=== PATIENT | male | born 1965 | race Caucasian/White ===

== ENCOUNTER 2020-07-25 09:47 | Outpatient (CLI) | payer OTHER ==
--- NOTE | 2020-07-25 10:29 | XRAY Report ---
PROCEDURE: Hips 2V BILAT INDICATIONS: HIP PAIN TECHNIQUE: An AP view of the pelvis and frog-leg lateral view of the right hip were acquired. COMPARISON: None FINDINGS: Bones: No fractures or dislocations. No suspicious bony lesions. The visualized pelvic ring appear s intact. Mild bilateral hip degenerative change. Soft tissues: No suspicious soft tissue calcifications or masses. IMPRESSION: Mild bilateral hip degenerative change. No evidence acute bony abnormality of the pelvis and left hip . Reviewed by: Blaze Coles MD on 07/25/2020 10:28 AM PST Approved by: Blaze Coles MD on 07/25/2020 10:28 AM PST Station ID: [id number]
--- NOTE | 2020-07-25 10:32 | XRAY Report ---
PROCEDURE: Lumbar Spine 2 View INDICATIONS: LUMBAR PAIN TECHNIQUE: 2 views of the lumbar spine were acquired. COMPARISON: None. FINDINGS: Bones: 5 [id number] vertebrae are present. There are bilateral L5 pars defects. There is grade 2 or 3 anterolisthesis of L5 on S1 measuring 2.7 cm. There is trace degenerative retrolisthesis of L4 on L5. There is mild degenerative anterolisthesis of L3 on L4. There is quite prominent facet arthro nila at these levels. No acute vertebral body compression fractures. Chronic T11 compression fractur e. No suspicious bony lesions. Soft tissues: Overlying bowel gas pattern is normal. No suspicious soft tissue calcifications. IMPRESSION: 1. Bilateral L5 pars defects with grade 2 or 3 anterolisthesis of L5 on S1. 2. Exuberant facet arthropathy and L3-L4 and L4-L5. 3. Chronic T11 compression fracture. Reviewed by: Blaze Coles MD on 07/25/2020 10:31 AM PST Approved by: Blaze Coles MD on 07/25/2020 10:31 AM PST Station ID: [id number]
== END 2020-07-25 09:48 | disposition home or self-care (01) ==
LOC: DI 09:47
DX: M16.0 Bilateral primary osteoarthritis of hip (principal); M43.17 Spondylolisthesis, lumbosacral region; M47.816 Spondylosis without myelopathy or radiculopathy, lumbar region; M47.817 Spondylosis without myelopathy or radiculopathy, lumbosacral region
CPT/HCPCS: 72100; 73521

== ENCOUNTER 2020-09-07 10:30 | Outpatient (CLI) | payer MEDICARE, OTHER ==
[2020-09-07 14:53] LABS: BASOPHILS # (AUTO) 0.1 10^3/uL (0.0-0.1); BASOPHILS % (AUTO) 0.7 %; EOSINOPHILS # (AUTO) 0.3 10^3/uL (0.0-0.7); EOSINOPHILS % (AUTO) 4.4 %; HGB - HEMOGLOBIN 13.8 g/dL (14.0-18.0); LYMPHOCYTES # (AUTO) 1.8 10^3/uL (1.5-3.5); LYMPHOCYTES % (AUTO) 24.4 %; MEAN CORPUSCULAR HEMOGLOBIN 28.9 pg (27.0-31.0); MEAN CORPUSCULAR HGB CONC 32.4 g/dL (32.0-36.0); MEAN CORPUSCULAR VOLUME 89.3 fL (80.0-94.0); MEAN PLATELET VOLUME 10.2 fL (7.4-11.4); MONOCYTES # (AUTO) 0.7 10^3/uL (0.0-1.0); MONOCYTES % (AUTO) 9.2 %; NEUTROPHILS # (AUTO) 4.6 10^3/uL (1.5-6.6); NEUTROPHILS % (AUTO) 60.9 %; PLT - PLATELET COUNT 238 10^3/uL (130-450); RED BLOOD COUNT 4.77 10^6/uL (4.70-6.10); RED CELL DISTRIBUTION WIDTH 13.3 % (12.0-15.0); WHITE BLOOD COUNT 7.5 x10^3/uL (4.8-10.8)
[2020-09-07 15:52] LABS: ALBUMIN 4.5 g/dL (3.2-5.5); ALBUMIN/GLOBULIN RATIO 1.5 (1.0-2.2); ALKALINE PHOSPHATASE 55 IU/L (42-121); ALT ALANINE AMINOTRANSFERASE 16 IU/L (10-60); AST ASPARTATE AMINOTRANSFERASE 18 IU/L (10-42); BUN - BLOOD UREA NITROGEN 18 mg/dL (6-20); CALCIUM 9.5 mg/dL (8.5-10.3); CARBON DIOXIDE - CO2 26 mmol/L (21-32); CHLORIDE 102 mmol/L (101-111); CHOL/HDL RATIO 5.5 (<5.0); CHOLESTEROL 264 mg/dL; CREATININE 1.2 mg/dL (0.6-1.2); GLUCOSE 120 mg/dL (70-100); HDL CHOLESTEROL 48 mg/dL; LDL CHOLESTEROL,CALCULATED 186 mg/dL; LDL/HDL RATIO 3.9 (<3.6); SODIUM 137 mmol/L (135-145); TOTAL PROTEIN 7.6 g/dL (6.7-8.2); VLDL CHOLESTEROL 30 mg/dL
== END 2020-09-07 10:31 | disposition home or self-care (01) ==
LOC: LAB.S 10:30
PROVIDERS: ATTEND Internal Medicine
DX: I10 Essential (primary) hypertension (principal); Z12.5 Encounter for screening for malignant neoplasm of prostate; I71.02 Dissection of abdominal aorta
CPT/HCPCS: 36415; 80053; 80061; 85025; G0103; 83721; 84153

== ENCOUNTER 2021-07-03 16:12 | Outpatient (CLI) | payer MEDICARE, OTHER ==
[2021-07-03 19:55] LABS: BASOPHILS # (AUTO) 0.1 10^3/uL (0.0-0.1); BASOPHILS % (AUTO) 0.6 %; EOSINOPHILS # (AUTO) 0.2 10^3/uL (0.0-0.7); HCT - HEMATOCRIT 42.2 % (42.0-52.0); HGB - HEMOGLOBIN 13.8 g/dL (14.0-18.0); LYMPHOCYTES # (AUTO) 1.9 10^3/uL (1.5-3.5); LYMPHOCYTES % (AUTO) 24.1 %; MEAN CORPUSCULAR HEMOGLOBIN 29.7 pg (27.0-31.0); MEAN CORPUSCULAR HGB CONC 32.7 g/dL (32.0-36.0); MEAN CORPUSCULAR VOLUME 90.9 fL (80.0-94.0); MEAN PLATELET VOLUME 10.4 fL (7.4-11.4); MONOCYTES # (AUTO) 0.6 10^3/uL (0.0-1.0); MONOCYTES % (AUTO) 7.9 %; NEUTROPHILS # (AUTO) 5.1 10^3/uL (1.5-6.6); NEUTROPHILS % (AUTO) 64.3 %; PLT - PLATELET COUNT 197 10^3/uL (130-450); RED BLOOD COUNT 4.64 10^6/uL (4.70-6.10); RED CELL DISTRIBUTION WIDTH 13.2 % (12.0-15.0)
[2021-07-03 20:14] LABS: ALBUMIN 4.4 g/dL (3.2-5.5); ALBUMIN/GLOBULIN RATIO 1.6 (1.0-2.2); BILIRUBIN,TOTAL 0.9 mg/dL (0.2-1.0); CALCIUM 9.4 mg/dL (8.5-10.3); CREATININE 1.3 mg/dL (0.6-1.2); POTASSIUM 4.1 mmol/L (3.5-5.0); TOTAL PROTEIN 7.2 g/dL (6.7-8.2)
[2021-07-03 20:26] LABS: THYROID STIMULATING HORMONE 3.9 uIU/mL (0.34-5.60)
== END 2021-07-03 16:13 | disposition home or self-care (01) ==
LOC: LAB.S 16:12
PROVIDERS: ATTEND Internal Medicine
DX: I10 Essential (primary) hypertension (principal); E03.9 Hypothyroidism, unspecified
CPT/HCPCS: 36415; 80053; 84443; 85025

== ENCOUNTER 2024-01-29 16:08 | Outpatient (CLI) | payer MEDICARE ==
--- NOTE | 2024-01-29 16:43 | XRAY Report ---
PROCEDURE: Hip w/Pelvis 2-3V RT INDICATIONS: PAIN IN RIGHT HIP JOINT TECHNIQUE: 3 views of the hip were acquired. COMPARISON: None. FINDINGS: Bones: No fractures or dislocations. No suspicious bony lesions. Mild acetabular joint space narr owing. Lower lumbar spine posterior lateral fusion and L5-S1 decompression Soft tissues: No suspicious soft tissue calcifications or masses. IMPRESSION: Mild degenerative joint space narrowing. No remodeling. Reviewed by: David Edwards MD on 01/29/2024 3:41 PM [email or web address] Approved by: David Edwards MD on 01/29/2024 3:41 PM AKDT Station ID: [id number]
== END 2024-01-29 16:09 | disposition home or self-care (01) ==
LOC: DI 16:08
PROVIDERS: ATTEND Internal Medicine
DX: M25.851 Other specified joint disorders, right hip (principal)

== ENCOUNTER 2024-02-01 13:00 | Outpatient (CLI) | payer MEDICARE ==
[2024-02-01 13:37] LABS: CREATININE 1.1 mg/dL (0.6-1.3)
[2024-02-01] MEDS ORDERED: iohexoL-300 100 ML VIAL ONE (14:23)
[2024-02-01] MEDS: iohexoL-300 100 ML VIAL IVP ONE (16:25)
--- NOTE | 2024-02-04 13:37 | CT Report ---
PROCEDURE: Angio Chest INDICATIONS: DISSECTION OF DISTAL AORTA CONTRAST: Omni 300 100ml TECHNIQUE: After the administration of intravenous contrast, 2 mm axial images were acquired from the pulmonary apices to the posterior costophrenic angles during the arterial phase. In addition, 1 mm lung kernel and 5 mm soft tissue kernel reconstructions were performed. 3-dimensional coronal oblique maximum int ensity projection (MIP) reformats, 8 mm axial MIP, and 5 mm coronal and sagittal MPR reformats were t hen performed through the thorax. For radiation dose reduction, the following was used: automated exp osure control, adjustment of mA and/or kV according to patient size. COMPARISON: None. Attempts to obtain priors from [facility] have been unsuccessful ove r the past 3 days. FINDINGS: Image quality: Excellent. Aorta and its attachments: The descending aorta is of normal caliber without dissection. It measures 3.3 cm. A dissection occurs involving the transverse arch between the origin of the left common carot id artery and the left subclavian. The brachiocephalic artery and left common carotid artery are unre markable. The left subclavian is involved and dissection from its origin to distal to the takeoff of the left vertebral artery. It appears the left vertebral artery is likely off of the false lumen. The dissection of the aorta continues below the lowest level imaged. The transverse arch of the aorta is aneurysmally dilated, measuring approximately 5.3 cm in diameter. The descending thoracic aorta is m ildly aneurysmally dilated, measuring 3.6 cm. The SMA and celiac are off of the true lumen, as are th e bilateral main renal arteries. The most proximal portion of the SARY appears to arise off the true l umen. There is no imaging alone this point. Lungs and pleura: No consolidation. No pleural effusions. No pneumothorax. No suspicious pulmonary n odules which require follow up. Mediastinum: Heart size is normal. No pericardial effusion. Moderate hiatal hernia. No mediastinal ad enopathy by size criteria. Chest wall and lower neck: Thyroid is unremarkable. No axillary or supraclavicular adenopathy by size . Bones: No aggressive osseous abnormality. Mild old T11 compression. Upper Abdomen: Unremarkable. IMPRESSION: 1. 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 Dissection involves the left subclavian to beyond the left vertebral artery. 2. 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 3. 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 There is mild aneurysmal dilatation of the descending thoracic aorta. 4. Dissection extends to beyond the level of imaging, which extends to just below the origin of the I MA. 5. SMA, celiac, and main renal arteries arise off of the true lumen. SARY likely arises off of the naif e lumen. Comment: Recommend obtaining the most recent previous study to evaluate whether or not aneurysmal dil atation of the transverse arch is increasing. Once prior studies become available, comparisons can be made and an addendum can be made to this dictation. Reviewed by: Blaze Coles MD on 02/04/2024 1:36 PM PDT Approved by: Blaze Coles MD on 02/04/2024 1:36 PM PDT Station ID: [id number]
== END 2024-02-01 13:01 | disposition home or self-care (01) ==
LOC: LAB 13:00
PROVIDERS: ATTEND Internal Medicine
DX: I71.012 Dissection of descending thoracic aorta (principal); Z79.899 Other long term (current) drug therapy
CPT/HCPCS: 36415; 71275; 82565; Q9967

== ENCOUNTER 2024-04-05 13:22 | Outpatient (CLI) | payer MEDICARE ==
--- NOTE | 2024-04-05 14:46 | Sleep Patient Instructions ---
Sleep Center Visit Summary - Patient Visit Information Reason for Visit: Initial consultation - Patient Instructions Additional Instructions: You will continue with CPAP therapy with pressure changed to 7-12 cmH2O. A supply prescription will be sent to new DME supplier once we have copy of sleep study. I will add an order to update your PAP machine. Please call the office to schedule a compliance follow up once you get your new device. Please follow up with the sleep care office one month after obtaining new device. - Clinic Information Contact: [facility] [address] [place] [address] [email or web address] T: [phone]
--- NOTE | 2024-04-05 14:50 | SLEEP CARE CONSULTATION ---
Information from patient questionnaire entered by Susan Malcolm. I have reviewed and concur with the information entered by Susan Malcolm. This document represents the service I personally performed and the decisions made by me, Kaelyn Akers ARNP. History of Present Illness Service Date and Time: 04/05/2024 1322 Reason for Visit: New patient, Previously diagnosed sleep apnea, sleep apnea on CPAP therapy Chief Complaint: reports: Snoring, Observed pauses in breathing, Other (UPDATE SUPPLIES) Date of Onset: 10+YRRS Usual bedtime: 2300 Time it takes to fall asleep: 5MINS Snores at night: Yes Observed to quit breathing while asleep: Yes Sleeps alone due to snoring: No Number of times waking at night: 3-5 Reasons for waking at night: reports: Bathroom Toss, Turn, or Twitch while sleeping: Yes Recalls having dreams: Yes Usually gets out of bed at: 0800 Feels refreshed in the morning: Yes Morning headache: No Sleepy or fatigued during the day: Yes Ever fallen asleep while driving: No Takes day naps: Yes Dreams during day naps: No Prior sleep studies: Yes Additional HPI information: TEMI AYERS was previously diagnosed to have severe, AHI unknown, obstructive sleep apnea-hypopnea syndrome (according to patient) and comes in today to establish care for CPAP therapy. - Parasomnia Symptoms Ever been unable to move upon waking from sleep: No Walks in sleep: No Talks in sleep: Yes Ever acted out dreams in sleep: No Ever felt weak in the knees when startled or emotional: No Bothered by creepy, crawly, restless sensations in legs: Yes Problems with memory or concentration: Yes CPAP Compliance Data - Data Reviewed with Patient Average duration of nightly device use: 8 hours 5 minutes Compliance rate %: 97.4 (10/30/3023-03/31/2024; 150/154 days used) Current pressure setting (cmH2O): 5-20 (median 5.5, avg 7, max 11.4) Average residual AHI: 10.9 Average large leak: 4 hours 49 mins 43 secs Compliance data discussion: He has a [email or web address], that he never received any information about the recall. He gets his supplies from [facility] in [place], [place]. He is using a full face mask, ResMed F20. Subjective Missed days of use due to: reports: other (camping, battery setup did not work) Patient concerns: denies: aerophagia, mask discomfort, air blowing in eyes, mask leak noise, condensation in mask/hose, nasal congestion, dry mouth, nose, throat, epistaxis Observed to snore while using device: No Current pressure setting perceived as: comfortable On therapy, patient: reports: sleeping better, awakening more refreshed, being more awake and alert during the day, more rested overall. denies: drowsiness while driving Initial [place] Sleepiness Scale score: 5 (04/05/24) Past Medical History Past Medical History: reports: Hypertension, Hypothyroidism, Other (APORTIC DISECTION) Social History The patient's occupation is a [employer]. Patient is and lives in . Have you smoked in the past 12 months: No Alcohol use: Yes Alcohol amount and frequency: 1 DRINK PER WEEK Caffeine use: Yes Caffeine amount and frequency: 1 CUP COFFEE 1 PER DAY Family History Family history of sleep disordered breathing: No Allergies and Home Medications Known drug allergies: Yes ( LISTED) Drug allergies reviewed: Yes Home medication list reviewed: Yes (as listed) Allergy and home medication list: Allergies lisinopril Adverse Reaction (Verified 04/05/24 13:33) Home Medications Medication Instructions Recorded Confirmed Last Taken Type Labetalol [Trandate] See Rx Instructions .ROUTE .COMPLEX 04/05/24 04/05/24 Unknown History Levothyroxine [Synthroid] See Rx Instructions .ROUTE .COMPLEX 04/05/24 04/05/24 Unknown History Losartan [Cozaar] See Rx Instructions .ROUTE .COMPLEX 04/05/24 04/05/24 Unknown History amLODIPine [Norvasc] See Rx Instructions .ROUTE .COMPLEX 04/05/24 04/05/24 Unknown History hydroCHLOROthiazide [Hydrodiuril] See Rx Instructions .ROUTE .COMPLEX 04/05/24 04/05/24 Unknown History Review of Systems Weight gain over past 5 years: 10 Cardiovascular: reports: high blood pressure, leg or foot swelling Respiratory: reports: shortness of breath Gastrointestinal: reports: heartburn Urinary: reports: urgency Neurological: reports: gait or balance problems Ear/Nose/Throat: reports: nasal congestion, sinus problems, tonsillectomy. denies: wisdom teeth removed Musculoskeletal: reports: joint pain, back pain Immunologic: reports: sneezing Physical Exam Vital signs obtained and entered by: SUSAN Florentino MA Blood Pressure: 124/74 (LEFT ARM) Cuff size: long Heart Rate: 65 O2 Saturation: 99 Height: 5 ft 10.5 in Weight: 218 lb 9.6 oz Body Mass Index: 30.9 BMI Classification: Obese Neck circumference: 17.25 Heart: regular rate and rhythm Lungs: clear bilaterally Impression and Plan 1. Obstructive Sleep Apnea-Hypopnea Syndrome, unknown, with good treatment compliance and fair apnea control with elevated residual AHI. On CPAP therapy, the patient has better sleep quality and is more rested overall. His residual AHI is elevated but he has a large leak about 4 hours 43 minutes. The patients pressure will be changed to autoCPAP 7-12 cmH20 for elevation of residual AHI. His Dreamstation was setup in 2018. He is eligible for a new device. He would like to find a more local company to get his CPAP supplies. I will have my construction coordinator inform of DME options. A DWO prescription will then be made once I have a copy of his last sleep study. Patient advised to contact this office if further supply problems. Patient advised to contact me if pressure change is uncomfortable so that it can be adjusted. Goals for apnea control discussed. Patient's apnea severity and rationale for treatment to reduce apnea, improve sleep quality and reduce cardiovascular and cerebrovascular events was reviewed. I also reviewed the benefit of consistent device use of CPAP for hypertension. 2. Obesity, unspecified. Currently patients BMI is 30.9. Obesity increases the risk of apnea, CPAP pressure requirements and overall health risks especially cardiovascular and diabetes. Thus patient is advised to lose weight. * Change auto CPAP pressure to 7-12 cmH2O * Transfer DME * Update machine * Update supply prescription * Notify me if snoring with mask or feeling that the pressure is too much or too little * Attempt to lose weight * Call this office if any problems using CPAP * Return for follow up in 1 month after obtaining new device, or sooner if concerns arise Counseling Topics: Spare mask, Weight loss health impact Prescriptions: Auto CPAP, Device supplies Plan: update cpap and compliance followup Visit Type: In Office Time Spent with Patient (minutes): 32 Provider Statement: I spent 100% of the Face to Face Visit with the patient with greater than 50% spent counseling the patient and coordination of care.
[2024-04-05 14:56] VITALS: BP 124/74; O2SAT 99
== END 2024-04-05 13:23 | disposition home or self-care (01) ==
LOC: SC 13:22
PROVIDERS: ATTEND Nurse Practitioner Family
DX: G47.33 Obstructive sleep apnea (adult) (pediatric) (principal); E66.9 Obesity, unspecified; Z68.30 Body mass index [BMI] 30.0-30.9, adult
CPT/HCPCS: 99203; G0463; 99212